=== PATIENT | male | born 1975 | race Caucasian/White ===

== ENCOUNTER 2022-06-04 02:43 | Emergency (ER) | payer MEDICAID ==
[~2022-06-04] VITALS: Ht 185.4 cm; Wt 84.1 kg
[~2022-06-04 02:43] MED LIST: FLO0.4C PO; ONDA8TAB6 PO
[2022-06-04 02:46] VITALS: BP 119/70
[2022-06-04] MEDS ORDERED: LIDOcaine 1% W/epiNEPHrine 1:200,000 10ml vial IJ ONE (02:55)
[2022-06-04] MEDS ORDERED: bacitracin 15gm ointment TP ONE (02:55)
[2022-06-04] MEDS ORDERED: LIDOcaine 1% w/EPI 1:100,000 30ml vial (MDV) IJ ONE (03:00)
== END 2022-06-04 03:55 | disposition home or self-care (01) ==
LOC: ER 02:44
DX: S61.412A Laceration without foreign body of left hand, initial encounter (principal); Z79.899 Other long term (current) drug therapy; W26.0XXA Contact with knife, initial encounter; Y93.89 Activity, other specified; Y92.89 Other specified places as the place of occurrence of the external cause; Y99.8 Other external cause status
CPT/HCPCS: 12001; 73100; 99283; A6449